=== PATIENT | female | born 1985 | race Caucasian/White ===

== ENCOUNTER 2016-10-21 23:48 | Emergency (ER) | payer OTHER ==
[~2016-10-21] VITALS: Ht 157.5 cm; Wt 53.5 kg
[2016-10-21 23:50] VITALS: BP 123/84
[2016-10-22] MEDS ORDERED: predniSONE 20 MG TABLET ONE (01:00)
[2016-10-22] MEDS ORDERED: PENICILLIN V POTASSIUM 500 MG TABLET PO ONE (01:00)
[2016-10-22] MEDS ORDERED: diphenhydrAMINE HCL 25 MG CAPSULE ONE (01:00)
[2016-10-22] MEDS: diphenhydrAMINE HCL 25 MG CAPSULE PO ONE (01:11)
[2016-10-22] MEDS: PENICILLIN V POTASSIUM 500 MG TABLET PO ONE (01:11)
[2016-10-22] MEDS: predniSONE 20 MG TABLET PO ONE (01:11)
== END 2016-10-22 01:13 | disposition home or self-care (01) ==
LOC: ER 23:48
DX: T78.3XXA Angioneurotic edema, initial encounter (principal)
CPT/HCPCS: A4606; Q0163; Z7610